=== PATIENT | female | born 1980 | race American Indian/Alaskan Native ===

== ENCOUNTER 2016-11-18 18:23 | Emergency (ER) | payer OTHER, BC ==
[2016-11-18 18:24] VITALS: BMI 26.2
[2016-11-18 18:29] VITALS: RESP 18; TEMP 98; O2SAT 100
--- NOTE | 2016-11-18 18:40 | ED PDOC ---
Arrival/HPI - General Chief Complaint: Lower Extremity Problem/Injury Time Seen by Provider: 11/18/16 18:30 Historian: Patient - History of Present Illness Narrative History of Present Illness (Text): 11/18/16 18:31 36 y/o female, pmh including PID, nkda, c/o lt. ankle pain x 2 days. Pt. stated that she inversion injury the left ankle about 2 days ago, been having pain, no foot pain, no calf pain, no chest pain or shortness of breath, no palpitation, no rash, no other medical or psychological complaints. Past Medical History - Provider Review Nursing Documentation Reviewed: Yes - Infectious Disease Hx of Infectious Diseases: None - Tetanus Immunization Tetanus Immunization: Unknown - Cardiac Hx Cardiac Disorders: No - Pulmonary Hx Respiratory Disorders: No - Neurological Hx Neurological Disorder: Yes (SYNCOPAL EPISODE) - HEENT Hx HEENT Disorder: No - Renal Hx Renal Disorder: No - Endocrine/Metabolic Hx Endocrine Disorders: No - Hematological/Oncological Hx Blood Transfusions: No Hx Blood Transfusion Reaction: No - Integumentary Hx Dermatological Disorder: No - Musculoskeletal/Rheumatological Hx Musculoskeletal Disorders: No Hx Falls: No - Gastrointestinal Hx Gastrointestinal Disorders: No - Genitourinary/Gynecological Hx Genitourinary Disorders: Yes (2 OVARIAN CYSTS,) Other/Comment: Endometriosis, fibroids - Psychiatric Hx Psychophysiologic Disorder: No Hx Substance Use: No - Surgical History Other/Comment: 2 OVARIAN CYST S REMOVED WITH myomectomy in 2009 - Anesthesia Hx Anesthesia Reactions: No Hx Malignant Hyperthermia: No - Suicidal Assessment Feels Threatened In Home Enviroment: No Family/Social History - Physician Review Nursing Documentation Reviewed: Yes Family/Social History: Unknown Family HX Smoking Status: Never Smoked Hx Alcohol Use: No Hx Substance Use: No Allergies/Home Meds Allergies/Adverse Reactions: Allergies Shrimp Allergy (Uncoded 11/18/16 18:26) ANAPHYLAXIS Unknown Antibiotic Allergy (Uncoded 11/18/16 18:26) ANAPHYLAXIS Review of Systems - Review of Systems Constitutional: absent: Fatigue, Fevers Eyes: absent: Vision Changes ENT: absent: Hearing Changes Respiratory: absent: SOB, Cough Cardiovascular: absent: Chest Pain Gastrointestinal: absent: Abdominal Pain, Diarrhea, Nausea, Vomiting Musculoskeletal: Arthralgias. absent: Back Pain, Neck Pain, Joint Swelling, Myalgias Skin: absent: Rash, Pruritis, Skin Lesions Neurological: absent: Headache, Dizziness, Gait Changes Physical Exam Vital Signs Reviewed: Yes Vital Signs Temp Pulse Resp BP Pulse Ox 11/18/16 20:19 77 18 133/84 100 11/18/16 18:26 98 F 80 18 113/65 100 Temperature: Afebrile Blood Pressure: Normal Pulse: Regular Respiratory Rate: Normal Appearance: Positive for: Well-Appearing, Non-Toxic, Comfortable Pain Distress: Mild Mental Status: Positive for: Alert and Oriented X 3 - Systems Exam Head: Present: Atraumatic, Normocephalic Pupils: Present: PERRL Extroacular Muscles: Present: EOMI Conjunctiva: Present: Normal Mouth: Present: Moist Mucous Membranes Neck: Present: Normal Range of Motion Respiratory/Chest: Present: Clear to Auscultation, Good Air Exchange. No: Respiratory Distress, Accessory Muscle Use Cardiovascular: Present: Regular Rate and Rhythm, Normal S1, S2. No: Murmurs Abdomen: Present: Normal Bowel Sounds. No: Tenderness, Distention, Peritoneal Signs Back: Present: Normal Inspection Upper Extremity: Present: Normal Inspection. No: Cyanosis, Edema Lower Extremity: Present: Normal Inspection, Other (Lt. ankle/foot: +ttp on the lateral malleolus region with mild swelling, negative bruce and ward signs, FROM without limitation, sensation intact, motor 5/5, +DPPT pulses, capillary refill< 2 seconds, no foot tenderness, negative bruce and ward signs. ). No : Edema Neurological: Present: GCS=15, Speech Normal, Motor Func Grossly Intact, Memory Normal Skin: Present: Warm, Dry, Normal Color. No: Rashes Psychiatric: Present: Alert, Oriented x 3, Normal Insight, Normal Concentration Medical Decision Making ED Course and Treatment: 11/18/16 18:46 -lt. ankle xray -motrin -zhang wrap, crutches. 11/18/16 19:47 -xray show no fracture/dislocation but there is lateral malleolus swelling, zhang wrap applied with neurovascular intact. -Discharge home with naproxen, zhang wrap, crutches, ice compression, follow up with your own pmd and orthopedic within 2 days, return to the ER for any new or worsening signs or symptoms. - RAD Interpretation Radiology Orders: 11/18/16 18:40 ANKLE LEFT 3 VIEWS ROUTINE [RAD] Stat lateral malleolus soft tissue swelling, no definitive fracture Legal Internship: Radiologist - Medication Orders Current Medication Orders: Discontinued Medications Ibuprofen (Motrin Tab) 600 mg PO STAT STA Stop: 11/18/16 18:41 Last Admin: 11/18/16 18:53 Dose: 600 mg Re-Assess: LISA Pain/Vitals Document 11/18/16 19:53 OCS (Rec: 11/18/16 20:37 OCS [facility] [place]-[id number]) Pain Reassessment Is This A Pain ReAssessment? Yes Sleep Is patient sleeping during reassessment? No Presence of Pain Presence of Pain No - PA / ADVERTISING EXECUTIVE / Resident Statement MD/DO has reviewed & agrees with the documentation as recorded. Disposition/Present on Arrival - Present on Arrival Any Indicators Present on Arrival: No History of DVT/PE: No History of Uncontrolled Diabetes: No Urinary Catheter: No History of Decub. Ulcer: No History Surgical Site Infection Following: None - Disposition Have Diagnosis and Disposition been Completed?: Yes Diagnosis: Ankle injury, Ankle pain Disposition: HOME/ ROUTINE Disposition Time: 18:46 Patient Plan: Discharge Condition: IMPROVED Additional Instructions: -Discharge home with naproxen, zhang wrap, crutches, ice compression, follow up with your own pmd and orthopedic within 2 days, return to the ER for any new or worsening signs or symptoms. Prescriptions: Naproxen 500 mg PO BID PRN #20 tab PRN Reason: Other Referrals: Pily Poole MD [Primary Care Provider] - Follow up with primary Riley Johnson MD [Staff Provider] - Follow up with primary Forms: [employer] ([place]), WORK NOTE
[2016-11-18 20:22] VITALS: BP 133/84; PULSE 77
--- NOTE | 2016-11-19 10:27 | RAD ---
PROCEDURE: Left Ankle Radiographs. HISTORY: lt. ankle inversion injury COMPARISON: None FINDINGS: BONES: No evidence acute displaced fracture nor dislocation. Small plantar surface enthesophyte JOINTS: Normal. No osteoarthritis. Ankle mortise maintained. Talar dome intact SOFT TISSUES: Mild soft tissue swelling overlying the lateral malleolus OTHER FINDINGS: None. IMPRESSION: Mild soft tissue swelling overlying the lateral malleolus. If symptoms persist or occult fracture suspected clinically recommend repeat radiographs in 5-days as most fractures should become radiographically evident in this timeframe.
== END 2016-11-18 19:53 | disposition home or self-care (01) ==
LOC: ED 18:23
DX: S99.912A Unspecified injury of left ankle, initial encounter (principal); X50.0XXA Overexertion from strenuous movement or load, initial encounter; Y93.89 Activity, other specified; Y92.89 Other specified places as the place of occurrence of the external cause